=== PATIENT | male | born 1945 | race Caucasian/White ===

== ENCOUNTER 2023-06-20 11:45 | Emergency (ER) | payer MEDICARE ==
[~2023-06-20] VITALS: Ht 170.2 cm; Wt 74.4 kg
[~2023-06-20 11:45] MED LIST: AMOX TR-K CLV1 EAC2 PO; ATRIPLA TABLET1 TAB; LEVOTHYROXINE175 MC1; MUPIROCIN22 GM TOP
[2023-06-20 11:50] VITALS: O2SAT 100
== END 2023-06-20 12:12 | disposition home or self-care (01) ==
LOC: FSED 11:55
DX: Z48.01 Encounter for change or removal of surgical wound dressing (principal)
CPT/HCPCS: 99283

== ENCOUNTER 2024-05-31 16:35 | Emergency (ER) | payer MEDICARE ==
[~2024-05-31] VITALS: Ht 170.2 cm; Wt 72.6 kg
[~2024-05-31 16:35] MED LIST changes: +VISTARIL25 MG PO
[2024-05-31 16:51] VITALS: TEMP 98.2
[2024-05-31 16:54] VITALS: PULSE 76; RESP 18
[2024-05-31] MEDS ORDERED: SODIUM CHLORIDE FLUSH 10 ML SYR IV PRN (17:15)
[2024-05-31 17:22] LABS: BASOPHILS % 0.3 % (0.0-1.0); EOSINOPHILS # (AUTO) 0.1 (0.0-0.4); EOSINOPHILS % 0.6 % (0.0-6.0); HEMATOCRIT 20.4 % (38.2-49.6); LYMPHOCYTES # (AUTO) 2.4 (1.0-3.2); LYMPHOCYTES % 17.2 % (18.0-39.1); MEAN CORPUSCULAR HEMOGLOBIN 25.1 pg (28-32); MEAN CORPUSCULAR HGB CONC 29.4 g/dL (31-35); MEAN CORPUSCULAR VOLUME 85.4 fL (81-99); MONOCYTES # (AUTO) 1.4 (0.2-0.8); MONOCYTES % 9.7 % (4.4-11.3); NEUTROPHILS % 71.3 % (38.7-80.0); PLATELET COUNT 547 x10e3/uL (140-360); RED BLOOD COUNT 2.39 x10e6/uL (4.3-5.7); RED CELL DISTRIBUTION WIDTH 17.1 % (11.7-14.4); WHITE BLOOD COUNT 14.04 x10e3/uL (4.8-10.8)
[2024-05-31] MEDS ORDERED: SODIUM CHLORIDE 0.9% 250ML 250 ML IV ONE (17:30)
[2024-05-31 17:34] LABS: ALBUMIN 3.3 g/dL (3.5-5.0); ALBUMIN/GLOBULIN RATIO 0.9 (0.8-2.0); ANION GAP 13.1 mmol/L (8-16); BILIRUBIN,TOTAL 0.3 mg/dL (0.2-1.2); CALCIUM 8.5 mg/dL (8.4-10.2); CREATININE, SERUM 1.39 mg/dL (0.72-1.25); POTASSIUM 4.1 mmol/L (3.5-5.1); TOTAL PROTEIN 7.1 g/dL (6.5-8.1)
[2024-05-31 17:40] LABS: TROPONIN I 0.01 ng/mL (0-0.300)
[2024-05-31 18:28] LABS: INR 1.01; PROTHROMBIN TIME 13.9 seconds (11.9-14.5)
[2024-05-31 18:29] LABS: PARTIAL THROMBOPLASTIN TIME 24.1 seconds (23.8-35.5)
[2024-05-31 19:01] LABS: PLATELET MORPHOLOGY COMMENT NORMAL
[2024-05-31 19:02] LABS: PLATELET ESTIMATE SLIGHTLY INCREASED
[2024-05-31 19:03] LABS: ANISOCYTOSIS SLIG; TARGET CELLS FEW
[2024-05-31 19:10] LABS: HYPOCHROMASIA MODERATE; POIKILOCYTOSIS SLIG; RBC MORPHOLOGY COMMENT ABNORMAL
[2024-05-31 20:09] VITALS: BP 138/72; O2SAT 98
== END 2024-05-31 19:31 | disposition other institution (70) ==
LOC: ER 16:49
DX: S06.6X0A Traumatic subarachnoid hemorrhage without loss of consciousness, initial encounter (principal); R55 Syncope and collapse; R42 Dizziness and giddiness; D64.9 Anemia, unspecified; E03.9 Hypothyroidism, unspecified; B20 Human immunodeficiency virus [HIV] disease
CPT/HCPCS: 36415; 70450; 71045; 80053; 83880; 84484; 85025; 85610; 85730; 93005; 94760; 99284